=== PATIENT | female | born 1990 | race Caucasian/White ===

== ENCOUNTER → 2018-04-26 | Emergency (ER) | payer BC ==
[2018-04-26] MEDS: IBUPROFEN 600 MG TAB PO (04:17)
== END | disposition home or self-care (01) ==
LOC: FTE 03:29
DX: S93.402A Sprain of unspecified ligament of left ankle, initial encounter (principal); W10.8XXA Fall (on) (from) other stairs and steps, initial encounter; Y92.9 Unspecified place or not applicable
CPT/HCPCS: 73610; 99283-25

== ENCOUNTER 2018-09-20 23:59 | Emergency (ER) | payer BC ==
[2018-09-21] MEDS: IBUPROFEN 600 MG TAB PO (02:06)
== END 2018-09-21 04:29 | disposition home or self-care (01) ==
LOC: FTE 23:59
DX: S13.4XXA Sprain of ligaments of cervical spine, initial encounter (principal); F17.200 Nicotine dependence, unspecified, uncomplicated; V49.50XA Passenger injured in collision with unspecified motor vehicles in traffic accident, initial encounter
CPT/HCPCS: 72040; 72072; 72100; 81025; 99283-25